=== PATIENT | male | born 1990 | race Caucasian/White ===

== ENCOUNTER 2019-06-02 04:18 | Emergency (ER) | payer MEDICAID ==
[2019-06-02] MEDS: LIDOCAINE/MYLANTA 40 ML BTL PO (04:49)
[2019-06-02] MEDS: FAMOTIDINE 20 MG TAB PO (04:49)
== END 2019-06-02 04:50 | disposition home or self-care (01) ==
LOC: E/R 04:18
DX: R10.13 Epigastric pain (principal); R07.9 Chest pain, unspecified
CPT/HCPCS: 93005; 99283-25; Z7610